=== PATIENT | male | born 1965 | race African-American/Black ===

== ENCOUNTER → 2017-02-20 | Outpatient (CLI) | payer OTHER ==
[~2017-02-20] MED LIST: ALBUTEROL17 GM INH; BENADRYL PO; EPIPEN0.3 MG/0.1 IM; FLEXERIL PO; LISINOPRIL PO; PEPCID PO; PREDNISONE PO; TYLENOL #3 PO; ZESTRIL10 M2 PO
--- NOTE | ~2017-02-20 | CR184 ---
[facility] A Service of [facility] & [facility] RADIOLOGY TEXT RESULTS PATIENT: YASMANI LUCAS LOCATION: [facility] : 61 UNIT #: [id number] AGE: [address]: Shanita Sanchez MD SEX: M ORDER DR: [id number] [facility] [address] [place], [place] [address] [id number] O MR#: [id number] Acc #: [id number] NAME: YASMANI LUCAS : 1965 SEX: M STUDY DATE/TIME: 02/20/2017 20:13 UNIT: [facility] ROOM: STUDY DESCRIPTION: CR Lumbar Spine Min 4 Views Attending Physician: Shanita Sanchez M.D. Ordering Physician: Shanita Sanchez M.D. Primary Care Physician: [facility] MEDICAL IMAGING REPORT This report is preliminary unless electronic signature is present EXAM Lumbar series 02/20/2017 INDICATIONS 51-year-old male with low back pain, constant ow back pain and hip pain. Pain extends down the right leg in the back symptoms 8 months worse for the past month. Lower extremity numbness and tingling on the right. TECHNIQUE Five views of the lumbar spine. No comparisons. FINDINGS Vertebral body heights and alignment preserved. Mild degenerative disc disease at L5-S1. Mild facet arthropathy at L3-4 through L5-S1. No pars defect. Probable vascular calcification in the left hemipelvis. IMPRESSION 1. Degenerative change but no acute fracture or malalignment. Dictated by... Miguel Drake M.D. THIS IS AN ELECTRONICALLY VERIFIED REPORT Miguel Drake M.D. at 02/21/2017 2:07 PM DEISI/orly TD: 02/21/2017 09:01 JOB #: [id number] MEDICAL IMAGING REPORT Page 1 of 1 COPY
--- NOTE | ~2017-02-20 | CR150 ---
[facility] A Service of [facility] & [facility] RADIOLOGY TEXT RESULTS PATIENT: YASMANI LUCAS LOCATION: [facility] : 61 UNIT #: [id number] AGE: [address]: Shanita Sanchez MD SEX: M ORDER DR: [id number] [facility] [address] [place], [place] [address] [id number] O MR#: [id number] Acc #: [id number] NAME: YASMANI LUCAS : 1965 SEX: M STUDY DATE/TIME: 02/20/2017 20:25 UNIT: [facility] ROOM: STUDY DESCRIPTION: CR Hip Min 2 Views Lt Attending Physician: Shanita Sanchez M.D. Ordering Physician: Shanita Sanchez M.D. [facility] REPORT This report is preliminary unless electronic signature is present EXAM Left hip 02/20/2017 HISTORY 51-year-old male with bilateral hip pain for 8 months. COMPARISON Right hip, same date. FINDINGS Two views of the left hip demonstrate no acute fracture or dislocation. Mild left hip joint space narrowing with early subchondral sclerosis and cystic change. There are advanced degenerative changes noted in the right hip. Bony pelvis intact. Sacrum and SI joints intact. Soft tissues are unremarkable. IMPRESSION 1. No acute fracture or dislocation. Mild left hip arthrosis. 2. Advanced right hip arthrosis. Dictated by... Celio Carbone M.D. THIS IS AN ELECTRONICALLY VERIFIED REPORT Celio Carbone M.D. at 02/21/2017 1:17 PM ERIC/meghan TD: 02/21/2017 09:03 JOB #: [id number] MEDICAL IMAGING REPORT Page 1 of 1 COPY
--- NOTE | ~2017-02-20 | CR151 ---
[facility] A Service of [facility] RADIOLOGY TEXT RESULTS PATIENT: YASMANI LUCAS LOCATION: [facility] : 61 UNIT #: [id number] AGE: [address]: Shanita Sanchez MD SEX: M ORDER DR: [id number] [facility] [address] [place], [place] [address] [id number] O MR#: [id number] Acc #: [id number] NAME: YASMANI LUCAS : 1965 SEX: M STUDY DATE/TIME: 02/20/2017 20:20 UNIT: [facility] ROOM: STUDY DESCRIPTION: CR Hip Min 2 Views Rt Attending Physician: Shanita Sanchez M.D. Ordering Physician: Shanita Sanchez M.D. Primary Care Physician: [facility] REPORT This report is preliminary unless electronic signature is present EXAM Right hip 02/20/2017 HISTORY 51-year-old male with bilateral hip pain for 8 months. COMPARISON Left hip, same date. FINDINGS Two views of the right hip demonstrate extensive subchondral sclerosis and cystic change throughout the right hip joint. There is [id number] right hip joint space narrowing. No acute fracture or dislocation. There is mild left hip joint space narrowing with early subchondral sclerosis and cystic change. Bony pelvis intact. Sacrum and SI joints are intact. Soft tissues are unremarkable. IMPRESSION 1. No acute fracture or dislocation. 2. Advanced right hip arthrosis. Mild left hip arthrosis. Dictated by... Celio Carbone M.D. THIS IS AN ELECTRONICALLY VERIFIED REPORT Celio Carbone M.D. at 02/21/2017 1:17 PM ERIC/meghan TD: 02/21/2017 09:00 JOB #: [id number] [facility] A Service of [facility] & [facility] RADIOLOGY TEXT RESULTS PATIENT: YASMANI LUCAS LOCATION: [facility] : 61 UNIT #: [id number] AGE: [address]: Shanita Sanchez MD SEX: M ORDER DR: MEDICAL IMAGING REPORT Page 1 of 1 COPY
== END | disposition home or self-care (01) ==
LOC: CRAD 19:37
DX: M25.551 Pain in right hip (principal); M25.552 Pain in left hip; M54.5 Low back pain; M16.0 Bilateral primary osteoarthritis of hip; M47.896 Other spondylosis, lumbar region
CPT/HCPCS: 72110; 73502